=== PATIENT | male | born 1995 | race Caucasian/White ===

== ENCOUNTER → 2016-06-21 | Outpatient (CLI) | payer OTHER ==
--- NOTE | 2016-06-21 08:57 | DIAGNOSTIC IMAGING REPORT ---
Ultrasound left inguinal region ABDOMEN FOR HERNIA CLINICAL HISTORY: AB PAIN pain. Nodule. TECHNIQUE: Ultrasound COMPARISON STUDY: None FINDINGS: Negative study IMPRESSION: Negative study. Study specifically negative for hernia Electronically signed by: Cong Akhtar M.D. 06/21/2016 8:55 AM Dictated Date/Time: 06/21/2016 8:54 AM
== END | disposition home or self-care (01) ==
LOC: C.ULTR 08:17
PROVIDERS: ATTEND Family Medicine
DX: R10.32 Left lower quadrant pain (principal)